=== PATIENT | female | born 1930 | race Caucasian/White ===

== ENCOUNTER 2016-03-02 13:24 | Emergency (ER) | payer MEDICARE ==
[~2016-03-02] VITALS: Ht 160 cm; Wt 83.6 kg
[~2016-03-02 13:24] MED LIST: ACET325T51 PO; ASPI325T32 PO; AZIT250T4 PO; BISA-67 PO; CALC-846 PO; CALC600T12 PO; CEFU500T PO; CHOL400T PO; CITA10TA9 PO; FAMO20T PO; FRSM80T PO; GABA-500 PO; GUAI400T57 PO; HYDR-3797 PO; HYDR12TA3 PO; LORA10CA PO; MV,C1TAB15 PO; NALO4SPR NASAL; NITR0.4T SL; OXYC10TA8 PO; POLY17PO6 PO; POTA20TA16 PO; PROM25TA14 PO; QUET25TA73 PO; QUET50TA55 PO; ZIT250 PO
[2016-03-02 13:28] VITALS: BP 170/74; PULSE 80; RESP 10; O2SAT 100
[2016-03-02 13:53] VITALS: O2SAT 89
--- NOTE | 2016-03-02 13:53 | DRSVH ---
PROCEDURE: X-RAY CHEST ONE VIEW, PORTABLE ([id number]) INDICATIONS: dyspnea TECHNIQUE: One view of the chest was acquired. COMPARISON: [facility], CR, XR CHEST 1VW (PORTABLE), 12/24/2015, 8:24. [facility], CR, XR CHEST 2VW, 02/11/2016, 23:21. FINDINGS: Surgical changes and devices: Surgical clips are present in the right axilla. Lungs and pleura: No pleural effusions or pneumothorax. Lungs are clear. Mediastinum: Mediastinal contours appear normal. Heart size is enlarged, as before. The aortic arch is calcified. Bones and chest wall: No suspicious bony lesions. Overlying soft tissues appear unremarkable. IMPRESSION: Cardiomegaly and aortic atherosclerosis. No acute pulmonary findings. Dictated by: Nazia Bashir M.D. on 03/02/2016 at 13:51 Approved by: Nazia Bashir M.D. on 03/02/2016 at 13:51
[2016-03-02 13:57] LABS: BASOPHILS % (AUTO) 0.4 % (0-3); EOSINOPHILS % (AUTO) 3.1 % (0-5); MONOCYTES % (AUTO) 14.2 % (4-12); Mean Corpuscular Hemoglobin 26.7 pg (27.0-35.0); Mean Corpuscular Volume 80.9 fL (81-100); NEUTROPHILS % (AUTO) 54.6 % (40-74); Platelet Count 284 bil/L (150-400)
[2016-03-02 14:23] VITALS: BP 155/59; PULSE 75; O2SAT 96
[2016-03-02] MEDS ORDERED: MethylprednisoLONE Sodium Succinate 62.5 mg/mL 2 mL Inj IVPUSH ONE (14:25)
[2016-03-02] MEDS ORDERED: Albuterol-Ipratropium 3 mL Inhalation Solution NEB ONE (14:25)
[2016-03-02] MEDS ORDERED: Albuterol 2.5 mg/3 mL Inhalation Solution NEB ONE (14:25)
[2016-03-02 14:28] LABS: TROPONIN T < 0.010 ug/L (0.0-0.011)
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
[2016-03-02 14:48] VITALS: PULSE 72; RESP 12; O2SAT 99
[2016-03-02] MEDS ORDERED: predniSONE 20 mg Tablet PO ONE (15:10)
[2016-03-02] MEDS ORDERED: AZIT250T4 PO (15:52)
[2016-03-02] MEDS ORDERED: ALBU8.5H2 INHALATION (15:52)
[2016-03-02] MEDS ORDERED: PRE10 PO (15:52)
[2016-03-02 16:13] VITALS: BP 146/46; PULSE 101; RESP 16; O2SAT 96
== END 2016-03-02 16:14 | disposition home or self-care (01) ==
LOC: SED 13:24
DX: J44.1 Chronic obstructive pulmonary disease with (acute) exacerbation (principal); I10 Essential (primary) hypertension; I25.10 Atherosclerotic heart disease of native coronary artery without angina pectoris; K21.9 Gastro-esophageal reflux disease without esophagitis; E78.5 Hyperlipidemia, unspecified; Z87.891 Personal history of nicotine dependence; Z85.3 Personal history of malignant neoplasm of breast; Z90.13 Acquired absence of bilateral breasts and nipples; Z79.82 Long term (current) use of aspirin; Z88.1 Allergy status to other antibiotic agents; Z88.2 Allergy status to sulfonamides; Z88.5 Allergy status to narcotic agent; Z88.8 Allergy status to other drugs, medicaments and biological substances
CPT/HCPCS: 36415; 71010; 80053; 83735; 83880; 84484; 85025; 85379; 87804; 93005; 94664; 99285; J7613; J7620

== ENCOUNTER 2016-04-06 19:40 | Emergency (ER) | payer MEDICARE ==
[~2016-04-06] VITALS: Ht 160 cm; Wt 83.6 kg
[~2016-04-06 19:40] MED LIST changes: +ALBU8.5H2 INHALATION; +PRE10 PO
[2016-04-06 19:49] VITALS: BP 174/76; PULSE 83; RESP 18; O2SAT 99
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
[2016-04-06 20:30] LABS: BASOPHILS % (AUTO) 0.5 % (0-3); EOSINOPHILS % (AUTO) 4.5 % (0-5); MONOCYTES % (AUTO) 17.3 % (4-12); Mean Corpuscular Hemoglobin 25.8 pg (27.0-35.0); Mean Corpuscular Volume 80.4 fL (81-100); NEUTROPHILS % (AUTO) 45.9 % (40-74); Platelet Count 287 bil/L (150-400)
--- NOTE | 2016-04-06 21:17 | DRSVH ---
PROCEDURE: X-RAY CHEST, TWO VIEWS ([id number]) INDICATIONS: dyspnea TECHNIQUE: 2 views of the chest were acquired. COMPARISON: [facility], CR, XR CHEST 1VW (PORTABL manager customer leads are seen over th e chest.2017, 13:33. FINDINGS: Surgical changes and devices: None. Lungs and pleura: No pleural effusions or pneumothorax. Lungs are clear. Pulmonary vascular is nor mal Mediastinum: Mediastinal contours are normal. Heart size is mildly enlarged Bones and chest wall: No suspicious bony abnormalities. Soft tissues appear unremarkable. IMPRESSION: Acute disease is not seen in the two-view chest. Cause of dyspnea is not appreciated. Dictated by: Domingo Gallardo M.D. on 04/06/2016 at 21:07 Approved by: Domingo Gallardo M.D. on 04/06/2016 at 21:16
[2016-04-06 21:22] VITALS: BP 125/64; PULSE 98; RESP 16; O2SAT 98
[2016-04-06] MEDS ORDERED: MethylprednisoLONE Sodium Succinate 62.5 mg/mL 2 mL Inj IVPUSH ONE (22:40)
[2016-04-06] MEDS ORDERED: Albuterol-Ipratropium 3 mL Inhalation Solution NEB ONE (22:40)
[2016-04-06 23:03] LABS: APPEARANCE,URINE HAZY (CLEAR,HAZY); COLOR,URINE STRAW (YELLOW); OCCULT BLOOD,URINE TRACE (NEGATIVE); PH,URINE 6.5 (5.0-8.0); UROBILINOGEN,URINE NORMAL (NORMAL)
[2016-04-06] MEDS ORDERED: cefTRIAXone Inj 2,000 MG in Dextrose 5% Minibag Plus 50 ML IV ONE (23:10)
[2016-04-07 00:13] VITALS: BP 125/50; PULSE 98; RESP 20; O2SAT 92
[2016-04-07] MEDS ORDERED: Potassium Chloride 20 mEq SR Tablet PO ONE (00:30)
[2016-04-07 00:56] VITALS: BP 128/40; PULSE 90; RESP 18; O2SAT 95
[2016-04-07 01:26] VITALS: BP 127/49; PULSE 91; RESP 20; O2SAT 95
== END 2016-04-07 01:27 | disposition home or self-care (01) ==
LOC: SED 19:40
DX: N30.00 Acute cystitis without hematuria (principal); J44.1 Chronic obstructive pulmonary disease with (acute) exacerbation; I10 Essential (primary) hypertension; I25.10 Atherosclerotic heart disease of native coronary artery without angina pectoris; I48.91 Unspecified atrial fibrillation; K21.9 Gastro-esophageal reflux disease without esophagitis; Z87.891 Personal history of nicotine dependence; Z85.3 Personal history of malignant neoplasm of breast; Z90.49 Acquired absence of other specified parts of digestive tract; Z79.82 Long term (current) use of aspirin; Z88.1 Allergy status to other antibiotic agents; Z88.2 Allergy status to sulfonamides; Z88.8 Allergy status to other drugs, medicaments and biological substances
CPT/HCPCS: 36415; 71020; 80053; 81000; 83880; 84484; 85025; 85379; 87086; 87088; 93005; 96365; 96375; 99285; J0696; J2930; J7620